=== PATIENT | female | born 1930 | race Caucasian/White ===

== ENCOUNTER 2017-11-26 14:22 | Inpatient (IN) | payer MEDICARE, MEDICAID ==
[2017-11-26 14:57] VITALS: BMI 42.5
--- NOTE | 2017-11-26 15:19 | C.PDOC ---
History Of Present Illness 87 y/o F c PMHx HTN, HLD, DM, Alzheimer's BIBEMS with shortness of breath since this morning. Patient was visited by daughter at home, was found to be dyspneic and complaining of palpitations and general weakness. En route, patient was given 2 nitro sprays and Aspirin 325. The patient denies any fever, chest pain, nausea, vomiting, diarrhea. Daughter notes bilateral lower legs with edema over past few weeks. Time Seen by Provider: 11/26/17 14:52 Chief Complaint (Nursing): Shortness Of Breath Past Medical History Vital Signs: Last Vital Signs Temp 98.5 F 11/26/17 14:30 Pulse 73 11/26/17 17:30 Resp 29 H 11/26/17 17:30 BP 168/89 H 11/26/17 17:30 Pulse Ox 93 L 11/26/17 17:30 - Medical History PMH: Alzheimer's Disease, Diabetes, HTN Denies: Depression Surgical History: Denies: Pacemaker - [facility] COLONOSCOPY (09/17/12) DX ULTRASOUND-DIGESTIVE (04/06/07) ESOPHAGOGASTRODUODENOSCOPY [EGD] W/CLOSED BIOPSY (04/06/07) Family History: States: No Known Family Hx - Social History Hx Tobacco Use: No Hx Alcohol Use: No Hx Substance Use: No Review Of Systems Except As Marked, All Systems Reviewed And Found Negative. Constitutional: Negative for: Fever Cardiovascular: Negative for: Chest Pain Physical Exam - Physical Exam Additional Physical Exam Comments: Gen: Elderly female, NAD Head: NC Eyes: No scleral icterus ENT: Dry MM Neck: Supple Chest: No tenderness CV: Regular rate, no S3 Lungs: Bibasilar crackles. Hypoxic to 86% on room air. Abd: Soft, NT Back: No CVA tenderness Skin: No rash Extremities: Bilateral pitting edema of lower legs Neuro: Alert ED Course And Treatment - Laboratory Results Result Diagrams: 11/26/17 15:15 11/26/17 15:15 O2 Sat by Pulse Oximetry: 88 Medical Decision Making Medical Decision Making: EKG Sinus rhythm, 83 bpm, nonspecific ST/T wave changes in precordial leads, no ST elevations. CTA reveals R pulmonary artery embolism. Blood pressure stable, pulse oximetry normal on nasal cannula, no tachycardia. Discussed with intesivist who recommends heparin drip and stable for floor. Dr. Vincent accepts to his service, recommends Dr. Wood and Dr. Lucero for consultation. Disposition Discussed With : Dragan Vincent - Disposition Disposition: HOSPITALIZED Disposition Time: 18:21 Condition: GUARDED Forms: [facility] (Serbian) - Clinical Impression Clinical Impression: Pulmonary embolism
[2017-11-26 15:23] LABS: BASO % 0.5 % (0.0-2.0); EOS # 0.2 K/uL (0.0-0.7); EOS % 2.9 % (0.0-4.0); HEMOGLOBIN 12.7 g/dL (11.0-16.0); LYMPH % 32.6 % (20.0-40.0); MEAN CORPUSCULAR HEMOGLOBIN 29.7 pg (27.0-31.0); MEAN CORPUSCULAR HGB CONC 33.3 g/dL (33.0-37.0); MEAN PLATELET VOLUME 8.5 fL (7.2-11.7); MONO # 0.4 K/uL (0.0-0.8); MONO % 6.1 % (0.0-10.0); NEUT # 3.5 K/uL (1.8-7.0); NEUT % 57.9 % (50.0-75.0); NRBC % 0.1 % (0.0-2.0); RBC 4.27 Mil/uL (3.80-5.20); RED CELL DISTRIBUTION WIDTH 15.6 % (11.5-14.5)
[2017-11-26 15:24] LABS: MEAN CELL VOLUME 89.1 fL (81.0-99.0)
[2017-11-26 15:29] LABS: PROTHROMBIN TIME 10.6 SECONDS (9.7-12.2)
[2017-11-26 15:32] LABS: ALB/GLOB RATIO 1.1 (1.0-2.1); ALBUMIN 4.2 g/dL (3.5-5.0); ALT/SGPT 24 U/L (9-52); AST/SGOT 28 U/L (14-36); BLOOD UREA NITROGEN 15 mg/dL (7-17); CALCIUM 9.4 mg/dl (8.6-10.4); GFR AFRICAN-AMERICAN > 60; GFR NON-AFRICAN AMERICAN 53
[2017-11-26 15:44] LABS: B-TYPE NATRIURETIC PEPTIDE 547 pg/mL (0-900); CK-MB 1.29 ng/mL (0.0-3.38)
--- NOTE | 2017-11-26 15:48 | RAD ---
HISTORY: dyspnea COMPARISON: 05/14/2015 FINDINGS: LUNGS: No active pulmonary disease. PLEURA: No significant pleural effusion identified, no pneumothorax apparent. CARDIOVASCULAR: Normal. OSSEOUS STRUCTURES: No significant abnormalities. VISUALIZED UPPER ABDOMEN: Normal. OTHER FINDINGS: None. IMPRESSION: No active disease.
[2017-11-26 16:24] LABS: SQUAMOUS EPITHIAL 2 /hpf (0-5); URINE BILIRUBIN NEGATIVE (NEGATIVE); URINE BLOOD 1+ (NEGATIVE); URINE CLARITY Clear (Clear); URINE COLOR Yellow (YELLOW); URINE GLUCOSE (UA) 1+ mg/dL (Normal); URINE LEUKOCYTE ESTERASE NEG Leu/uL (Negative); URINE NITRATE NEGATIVE (NEGATIVE); URINE PROTEIN 1+ mg/dL (NEGATIVE); URINE UROBILINOGEN NORMAL mg/dL (0.2-1.0)
[2017-11-26] MEDS ORDERED: Iodixanol 320 MG/ML 100 ML BOTTLE IV ONE (17:47)
[2017-11-26] MEDS ORDERED: Enoxaparin 80 mg Syringe SC STA (18:09)
--- NOTE | 2017-11-26 18:28 | CT ---
CTA chest PE protocol Indication: Hypoxia Technique: Contiguous axial images were obtained through the chest with intravenous contrast enhancement. Sagittal and coronal reconstructions were generated and reviewed. This CT exam was performed using 1 or more of the following dose reduction techniques: Automated exposure control, adjustment of the MAA and/or kV according to patient size, and/or use of iterative reconstruction technique. IV Contrast: 100 mL Visipaque 320 Radiation dose (DLP): 447.97 MGy-cm. Comparison: Chest x-ray performed 11/26/17 Findings: Visualized portions of the inferior thyroid gland appear unremarkable. The mediastinal and hilar vascular structures appear within normal limits. Heart size appears within normal limits. Atherosclerotic calcifications of the aorta. Large right main pulmonary artery embolus with extension into upper and lower lobe branches. Thrombus is also noted within the left upper greater than lower lobe pulmonary artery branches. Small linear opacity within the central pulmonary artery favored to reflect artifact rather than tiny saddle embolus. No focal consolidation. No pleural effusion. No pneumothorax. No suspicious pulmonary nodules measuring greater than 5 mm. Limited visualized portions of the upper abdomen ; fatty atrophy of the pancreas. Degenerative changes of the spine. Impression: Large right main pulmonary artery embolus with extension into upper and lower lobe branches. Thrombus is also noted within the left upper greater than lower lobe pulmonary artery branches. Small linear opacity within the central pulmonary artery favored to reflect artifact rather than tiny saddle embolus. Findings discussed with Dr. Pedroza on 11/26/17 at 6:19 p.m.
--- NOTE | 2017-11-26 19:18 | CP.PCM.CON ---
History of Present Illness - History of Present Illness History of Present Illness: reason for consultation: shortness of breath/pulmonary embolism 87-year-old female with hypertension, diabetes brought in by family for shortness of breath and swelling off lowextremities. Daughter states for the past few weeks patient developed bilateral lower extremities edema and today found her in respiratory distress with palpitation and generalized weakness. CT angio Showed large pulmonary embolism in the right pulmonary artery. Patient hemodynamically stable. Awake and responsive in no respiratory distress Past Patient History - Infectious Disease Hx of Infectious Diseases: None - Past Social History Smoking Status: Never Smoked - CARDIAC Hx Hypertension: Yes Hx Pacemaker: No - NEUROLOGICAL Hx Alzheimer's Disease: Yes - ENDOCRINE/METABOLIC Hx Diabetes Mellitus Type 1: Yes - HEMATOLOGICAL/ONCOLOGICAL Hx Blood Transfusions: No - PSYCHIATRIC Hx Depression: No Hx Substance Use: No - SURGICAL HISTORY Hx Surgeries: Yes (BLATERAL CATARCTS) - ANESTHESIA Hx Anesthesia Reactions: No Hx Malignant Hyperthermia: No Meds Allergies/Adverse Reactions: Allergies Allergy/AdvReac Type Severity Reaction Status Date / Time Penicillins Allergy RASH Verified 11/26/17 14:56 - Medications Medications: Current Medications Heparin Sodium/Sodium Chloride (Heparin 85068 Units/250ml 1/2 Normal Saline) 25 ,000 units in 250 mls @ 19.595 mls/hr IV .[id number] PRN; Protocol; 18 UNITS/KG/HR PRN Reason: ADJUST RATE PER PROTOCOL Results - Vital Signs Recent Vital Signs: Last Vital Signs Temp 98.5 F 11/26/17 14:30 Pulse 73 11/26/17 17:30 Resp 29 H 11/26/17 17:30 BP 168/89 H 11/26/17 17:30 Pulse Ox 88 L 11/26/17 18:22 - Labs Result Diagrams: 11/26/17 15:15 11/26/17 15:15 Labs: Laboratory Results - last 24 hr 11/26/17 11/26/17 11/26/17 15:07 15:15 15:15 WBC 6.0 RBC 4.27 Hgb 12.7 Hct 38.0 MCV 89.1 D MCH 29.7 MCHC 33.3 RDW 15.6 H Plt Count 215 MPV 8.5 Neut % (Auto) 57.9 Lymph % (Auto) 32.6 [place] % (Auto) 6.1 Eos % (Auto) 2.9 Baso % (Auto) 0.5 Neut # (Auto) 3.5 Lymph # (Auto) 2.0 [place] # (Auto) 0.4 Eos # (Auto) 0.2 Baso # (Auto) 0.0 PT INR APTT Sodium 139 Potassium 3.7 Chloride 98 Carbon Dioxide 29 Anion Gap 16 BUN 15 Creatinine 1.0 Est GFR ( Amer) > 60 Est GFR (Non-Af Amer) 53 POC Glucose (mg/dL) 227 H Random Glucose 245 H Calcium 9.4 Total Bilirubin 0.6 AST 28 ALT 24 Alkaline Phosphatase 86 Total Creatine Kinase 50 CK-MB (Mass) 1.29 Troponin I 0.0620 NT-Pro-B Natriuret Pep 547 Total Protein 8.0 Albumin 4.2 Globulin 3.8 Albumin/Globulin Ratio 1.1 Urine Color Urine Clarity Urine pH Ur Specific [place] Urine Protein Urine Glucose (UA) Urine Ketones Urine Blood Urine Nitrate Urine Bilirubin Urine Urobilinogen Ur Leukocyte Esterase Urine WBC (Auto) Urine RBC (Auto) Ur Squamous Epith Cells 11/26/17 11/26/17 15:15 16:04 WBC RBC Hgb Hct MCV MCH MCHC RDW Plt Count MPV Neut % (Auto) Lymph % (Auto) [place] % (Auto) Eos % (Auto) Baso % (Auto) Neut # (Auto) Lymph # (Auto) [place] # (Auto) Eos # (Auto) Baso # (Auto) PT 10.6 INR 1.0 APTT 30 Sodium Potassium Chloride Carbon Dioxide Anion Gap BUN Creatinine Est GFR ( Amer) Est GFR (Non-Af Amer) POC Glucose (mg/dL) Random Glucose Calcium Total Bilirubin AST ALT Alkaline Phosphatase Total Creatine Kinase CK-MB (Mass) Troponin I NT-Pro-B Natriuret Pep Total Protein Albumin Globulin Albumin/Globulin Ratio Urine Color Yellow Urine Clarity Clear Urine pH 5.0 Ur Specific [place] 1.014 Urine Protein 1+ H Urine Glucose (UA) 1+ Urine Ketones Negative Urine Blood 1+ H Urine Nitrate Negative Urine Bilirubin Negative Urine Urobilinogen Normal Ur Leukocyte Esterase Neg Urine WBC (Auto) < 1 Urine RBC (Auto) 3 Ur Squamous Epith Cells 2 Assessment & Plan (1) Pulmonary embolism Status: Acute Comment: patient hemodynamically stable. Start IV heparin. Echocardiogram. Venous Doppler of lower extremities
[2017-11-26] MEDS: Heparin25000 units/250ml 1/2NS 25,000 UNITS/250 ML BAG IV PRN (20:35)
[2017-11-26] MEDS ORDERED: ACETAMINOPHEN PO PRN (23:59)
[2017-11-26] MEDS ORDERED: NAPROXEN 375 MG PO PRN (23:59)
[2017-11-26] MEDS ORDERED: OXYCODONE HYDR PO PRN (23:59)
--- NOTE | 2017-11-27 05:42 | CON ---
DATE: CARDIOLOGY CONSULT REASON FOR CONSULTATION: Pulmonary embolism. HISTORY OF PRESENT ILLNESS: The patient is an 87 years old [place] Citizen female who has a history of hypertension, diabetes mellitus, hypothyroidism, hyperlipidemia, history of TIA, and history of Alzheimer dementia who was brought in by the EMS as her daughter noticed that the patient was short of breath with bilateral leg swelling. The patient in the ER was diagnosed with bilateral pulmonary embolism. The patient did report chest pain while she was at home, and she denies any chest pain at this time. SOCIAL HISTORY: Nonsmoker. She lives by herself with full daily care of her daughter and grandchildren. The patient is able to ambulate, but at times, she can get incontinent. She is confused but she still managed to stay by herself at home overnight. MEDICATIONS: The patient is currently on intravenous heparin in a therapeutic regimen for pulmonary embolism. Home medications include atorvastatin 10 mg daily, Pepcid 20 mg twice a day, Synthroid 100 mcg once a day, metformin 500 mg daily, lisinopril 10 mg once a day, naproxen 375 mg twice a day, tramadol 50 mg twice a day. REVIEW OF SYSTEMS: No reported syncope or fall. No reported fever or chills. No reported hemoptysis, and no reported hypotension while the patient is in the emergency room or ventricular tachycardia. PHYSICAL EXAMINATION: GENERAL: The patient is an elderly female, who does not appear to be in acute distress. VITAL SIGNS: Blood pressure 168/89, heart rate 73, respirations 29, temperature 98.5. HEENT: Normocephalic. NECK: No JVD. CHEST: Bilateral rhonchi. HEART: S1, S2 regular. ABDOMEN: Soft. EXTREMITIES: 1+ pitting edema with bilateral leg tenderness. LABORATORY DATA: SMA-7: Sodium 139, potassium 3.7, chloride 98, CO2 of 29, glucose 145, BUN 15, creatinine 1.0. One set of troponin is negative. PT, INR, and PTT are within normal limits. CBC: WBC 6, hemoglobin 12.7, hematocrit 38, platelet count 215,000. Chest CT angio was consistent with large right main pulmonary artery embolus with extension into the upper and lower low branches. Thrombus is also noted but in the left upper greater than low pulmonary arterial branches. A small linear opacity within the central pulmonary artery favors artifact rather than a saddle embolus. ASSESSMENT: 1. Acute bilateral pulmonary embolism. 2. Hypertension and diabetes mellitus. 3. Hyperlipidemia. 4. Hypothyroidism. 5. Alzheimer dementia. RECOMMENDATIONS: Continue current intravenous heparin in therapeutic regimen for pulmonary embolism. Admit the patient to the ICU. Obtain a bedside echocardiogram. Studio Technician Video Operator and pulmonary consult has been requested by Dr. Lucero, who will evaluate the patient tonight. At this time, thrombolysis is not indicated as the patient is not hypotensive. The patient's FiO2 is in the 90s at O2 via nasal cannula. We will obtain a bedside venous Doppler of the lower extremity. Joe Wood MD
[2017-11-27] MEDS ORDERED: HYDROmorphone 0.5 mg/0.5 ml ISec ONE (09:02)
[2017-11-27] MEDS ORDERED: VESICARE 5 MG PO SCH (10:00)
[2017-11-27] MEDS ORDERED: METFORMIN HYDROCHLORIDE 500 MG PO SCH (10:00)
[2017-11-27] MEDS ORDERED: LISINOPRIL 10 MG PO SCH (10:00)
[2017-11-27] MEDS ORDERED: Home Med 1 UNIT (Atorvastatin Calcium [Atorvastatin Calcium] 10 MG) PO SCH (10:00)
[2017-11-27] MEDS ORDERED: LEVOTHYROXINE SODIUM 100 MCG PO SCH (10:00)
[2017-11-27] MEDS ORDERED: FAMOTIDINE 20 MG PO SCH (10:00)
[2017-11-27] MEDS ORDERED: (Novolog) Insulin Aspart, Recombinant 100 u/ml 10 ml vial SC SCH (10:00)
[2017-11-27] MEDS ORDERED: Levothyroxine 100 MCG TAB PO SCH (10:30)
--- NOTE | 2017-11-27 10:40 | CP.PCM.PN ---
Subjective - Date & Time of Evaluation Date of Evaluation: 11/27/17 Time of Evaluation: 10:00 - Subjective Subjective: the patient seen and examined On heparin drip No shortness of breath at rest Echocardiogram showed pulmonary hypertension and dilated right atrium DVT right femoral and popliteal Consider IVC filter Consider IR consult for EKOS/ Objective - Vital Signs/Intake and Output Vital Signs (last 24 hours): Temp Pulse Resp BP Pulse Ox 98 F 65 20 115/64 87 L 11/27/17 08:30 11/27/17 08:30 11/27/17 08:30 11/27/17 08:30 11/27/17 08:30 Intake and Output: 11/27/17 11/27/17 06:59 18:59 Intake Total 50 Balance 50 - Medications Medications: Current Medications Famotidine (Pepcid) 20 mg PO BID [facility] Home Med (Vesicare) 5 mg PO DAILY [facility] Heparin Sodium/Sodium Chloride (Heparin 34119 Units/250ml 1/2 Normal Saline) 25 ,000 units in 250 mls @ 19.595 mls/hr IV .[id number] PRN; Protocol; 18 UNITS/KG/HR PRN Reason: ADJUST RATE PER PROTOCOL Last Titration: 11/27/17 07:50 Dose: 0 units/kg/hr, 0 mls/hr Insulin Aspart (Novolog) 0 unit SC QID [facility] PRN Reason: Protocol Levothyroxine Sodium (Synthroid) 100 mcg PO QD7 [facility] Lisinopril (Zestril) 10 mg PO DAILY [facility] Metformin HCl (Glucophage) 500 mg PO DAILY [facility] Naproxen (Anaprox) 275 mg PO BID PRN PRN Reason: Pain, 1-3 Oxycodone/Acetaminophen (Percocet 5/325 Mg Tab) 1 tab PO Q4 PRN PRN Reason: Pain Rivastigmine (Exelon 4.6 Mg/24 Hr Patch) 1 patch TD DAILY [facility] Rosuvastatin Calcium (Crestor) 5 mg PO HS [facility] - Labs Labs: 11/26/17 15:15 11/26/17 15:15 PT 10.6 SECONDS (9.7-12.2) 11/26/17 15:15 INR 1.0 11/26/17 15:15 APTT > 400 SECONDS (21-34) H* D 11/27/17 06:40 Assessment and Plan (1) Pulmonary embolism Assessment & Plan: continue anticoagulation Cardiology followup Consider IR for EKOS Status: Acute
[2017-11-27] MEDS: Heparin25000 units/250ml 1/2NS 25,000 UNITS/250 ML BAG IV PRN (10:52)
[2017-11-27] MEDS ORDERED: DiphenhydrAMINE 50 mg/ml Inj ONE (11:37)
[2017-11-27] MEDS ORDERED: Midazolam 2 MG/2 ML VIAL ONE ×2 (11:37)
[2017-11-27] MEDS ORDERED: Iodixanol 320 MG/ML 100 ML BOTTLE IV ONE (12:24)
[2017-11-27] MEDS ORDERED: Lidocaine 2% Inj (20ml) ONE (12:27)
--- NOTE | 2017-11-27 12:57 | CP.PCM.CON ---
History of Present Illness - History of Present Illness History of Present Illness: Vascular Surgery- Dr. Pierson 87F pmhx DM, HTN, presents to [facility] ed w/ bilateral lower extremity swelling, pain and erythema for 4 weeks. Pt has been short of breath for 1 week, however 1 day history of severe shortness of breath and chest pain. Pt admits to having recent URI w/ runny nose, and non-productive cough Denies: Fevers, nausea, vomiting, diarrhea PMH: stated above PSH: denies ALL: PCN SocialHx: lives at home by her self, ambulates w/ walker, denies ETOH, tobacco, recreational drug use Review of Systems - Review of Systems All systems: reviewed and no additional remarkable complaints except - Constitutional Constitutional: As Per HPI Past Patient History - Infectious Disease Hx of Infectious Diseases: None - Past Social History Smoking Status: Never Smoked - CARDIAC Hx Hypertension: Yes Hx Pacemaker: No - NEUROLOGICAL Hx Alzheimer's Disease: Yes - ENDOCRINE/METABOLIC Hx Diabetes Mellitus Type 1: Yes - HEMATOLOGICAL/ONCOLOGICAL Hx Blood Transfusions: No - PSYCHIATRIC Hx Depression: No Hx Substance Use: No - SURGICAL HISTORY Hx Surgeries: Yes (BLATERAL CATARCTS) - ANESTHESIA Hx Anesthesia Reactions: No Hx Malignant Hyperthermia: No Meds Allergies/Adverse Reactions: Allergies Allergy/AdvReac Type Severity Reaction Status Date / Time Penicillins Allergy RASH Verified 11/26/17 14:56 - Medications Medications: Current Medications Famotidine (Pepcid) 20 mg PO BID [facility] Home Med (Vesicare) 5 mg PO DAILY [facility] Heparin Sodium/Sodium Chloride (Heparin 14391 Units/250ml 1/2 Normal Saline) 25 ,000 units in 250 mls @ 19.595 mls/hr IV .[id number] PRN; Protocol; 18 UNITS/KG/HR PRN Reason: ADJUST RATE PER PROTOCOL Last Admin: 11/27/17 10:52 Dose: 15 units/kg/hr, 16.329 mls/hr Insulin Aspart (Novolog) 0 unit SC QID [facility] PRN Reason: Protocol Last Admin: 11/27/17 11:45 Dose: Not Given Levothyroxine Sodium (Synthroid) 100 mcg PO QD7 [facility] Lisinopril (Zestril) 10 mg PO DAILY [facility] Last Admin: 11/27/17 11:42 Dose: Not Given Metformin HCl (Glucophage) 500 mg PO DAILY [facility] Last Admin: 11/27/17 11:46 Dose: Not Given Naproxen (Anaprox) 275 mg PO BID PRN PRN Reason: Pain, 1-3 Oxycodone/Acetaminophen (Percocet 5/325 Mg Tab) 1 tab PO Q4 PRN PRN Reason: Pain Rivastigmine (Exelon 4.6 Mg/24 Hr Patch) 1 patch TD DAILY [facility] Rosuvastatin Calcium (Crestor) 5 mg PO HS [facility] Physical Exam - Constitutional Appears: Non-toxic, No Acute Distress - Eye Exam Eye Exam: Scleral icterus. absent: EOMI - Respiratory Exam Respiratory Exam: NORMAL BREATHING PATTERN. absent: Accessory Muscle Use, Respiratory Distress - Cardiovascular Exam Cardiovascular Exam: +S1, +S2. absent: Bradycardia, Tachycardia - GI/Abdominal Exam GI & Abdominal Exam: Soft. absent: Distended, Firm, Guarding, Rigid, Tenderness - Extremities Exam Additional comments: bilateral lower extremity swelling and erythema +2 DP pulses bilateral - Neurological Exam Neurological exam: Alert, Oriented x3 - Skin Skin Exam: Intact, Normal Color Results - Vital Signs Recent Vital Signs: Last Vital Signs Temp 97.4 F L 11/27/17 11:13 Pulse 81 11/27/17 11:00 Resp 22 11/27/17 11:00 BP 162/81 H 11/27/17 11:00 Pulse Ox 87 L 11/27/17 08:30 - Labs Result Diagrams: 11/26/17 15:15 11/26/17 15:15 Labs: Laboratory Results - last 24 hr 11/26/17 11/26/17 11/26/17 15:07 15:15 15:15 WBC 6.0 RBC 4.27 Hgb 12.7 Hct 38.0 MCV 89.1 D MCH 29.7 MCHC 33.3 RDW 15.6 H Plt Count 215 MPV 8.5 Neut % (Auto) 57.9 Lymph % (Auto) 32.6 [place] % (Auto) 6.1 Eos % (Auto) 2.9 Baso % (Auto) 0.5 Neut # (Auto) 3.5 Lymph # (Auto) 2.0 [place] # (Auto) 0.4 Eos # (Auto) 0.2 Baso # (Auto) 0.0 PT INR APTT Sodium 139 Potassium 3.7 Chloride 98 Carbon Dioxide 29 Anion Gap 16 BUN 15 Creatinine 1.0 Est GFR ( Amer) > 60 Est GFR (Non-Af Amer) 53 POC Glucose (mg/dL) 227 H Random Glucose 245 H Calcium 9.4 Total Bilirubin 0.6 AST 28 ALT 24 Alkaline Phosphatase 86 Total Creatine Kinase 50 CK-MB (Mass) 1.29 Troponin I 0.0620 NT-Pro-B Natriuret Pep 547 Total Protein 8.0 Albumin 4.2 Globulin 3.8 Albumin/Globulin Ratio 1.1 Urine Color Urine Clarity Urine pH Ur Specific [place] Urine Protein Urine Glucose (UA) Urine Ketones Urine Blood Urine Nitrate Urine Bilirubin Urine Urobilinogen Ur Leukocyte Esterase Urine WBC (Auto) Urine RBC (Auto) Ur Squamous Epith Cells 11/26/17 11/26/17 11/27/17 15:15 16:04 06:40 WBC RBC Hgb Hct MCV MCH MCHC RDW Plt Count MPV Neut % (Auto) Lymph % (Auto) [place] % (Auto) Eos % (Auto) Baso % (Auto) Neut # (Auto) Lymph # (Auto) [place] # (Auto) Eos # (Auto) Baso # (Auto) PT 10.6 INR 1.0 APTT 30 > 400 H* D Sodium Potassium Chloride Carbon Dioxide Anion Gap BUN Creatinine Est GFR ( Amer) Est GFR (Non-Af Amer) POC Glucose (mg/dL) Random Glucose Calcium Total Bilirubin AST ALT Alkaline Phosphatase Total Creatine Kinase CK-MB (Mass) Troponin I NT-Pro-B Natriuret Pep Total Protein Albumin Globulin Albumin/Globulin Ratio Urine Color Yellow Urine Clarity Clear Urine pH 5.0 Ur Specific [place] 1.014 Urine Protein 1+ H Urine Glucose (UA) 1+ Urine Ketones Negative Urine Blood 1+ H Urine Nitrate Negative Urine Bilirubin Negative Urine Urobilinogen Normal Ur Leukocyte Esterase Neg Urine WBC (Auto) < 1 Urine RBC (Auto) 3 Ur Squamous Epith Cells 2 11/27/17 11/27/17 07:51 11:52 WBC RBC Hgb Hct MCV MCH MCHC RDW Plt Count MPV Neut % (Auto) Lymph % (Auto) [place] % (Auto) Eos % (Auto) Baso % (Auto) Neut # (Auto) Lymph # (Auto) [place] # (Auto) Eos # (Auto) Baso # (Auto) PT INR APTT Sodium Potassium Chloride Carbon Dioxide Anion Gap BUN Creatinine Est GFR ( Amer) Est GFR (Non-Af Amer) POC Glucose (mg/dL) 189 H 172 H Random Glucose Calcium Total Bilirubin AST ALT Alkaline Phosphatase Total Creatine Kinase CK-MB (Mass) Troponin I NT-Pro-B Natriuret Pep Total Protein Albumin Globulin Albumin/Globulin Ratio Urine Color Urine Clarity Urine pH Ur Specific [place] Urine Protein Urine Glucose (UA) Urine Ketones Urine Blood Urine Nitrate Urine Bilirubin Urine Urobilinogen Ur Leukocyte Esterase Urine WBC (Auto) Urine RBC (Auto) Ur Squamous Epith Cells Assessment & Plan - Assessment and Plan (Free Text) Assessment: 87F w/ pulmonary embolism and acute DVT Plan: NPO hold heparin IVC filter placement today pain control PRN d/w. Dr. [facility] PGY1
--- NOTE | 2017-11-27 13:04 | VASCLAB ---
PROCEDURE: Lower Extremity Venous Duplex Exam. HISTORY: Leg swelling PRIORS: None. TECHNIQUE: Bilateral common femoral, femoral, popliteal and posterior tibial, peroneal and great saphenous veins were evaluated. Flow was assessed with color Doppler, compressibility, assessment of phasic flow and augmentation response. Report prepared by TABITHA Lizarraga, RVT FINDINGS: RIGHT: 1. Common Femoral Vein: 1.1. Compressibility - Fully compressible: Thrombus - None : Flow - Phasic: Augmentation -Normal: Reflux - None. 2. Femoral Vein: 2.1. Compressibility - Fully compressible: Thrombus - None : Flow - Phasic: Augmentation -Normal: Reflux - None. 3. Popliteal Vein: 3.1. Compressibility - Fully compressible: Thrombus - None : Flow - Phasic: Augmentation -Normal: Reflux - None. 4. Posterior Tibial Vein: 4.1. Compressibility - Fully compressible: Thrombus - None: Flow - Phasic: Augmentation -Normal: Reflux - None. 5. Peroneal Vein: 5.1. Compressibility - : Thrombus - : Flow - : Augmentation -: Reflux - . 6. Great Saphenous Vein: 6.1. Compressibility - Fully compressible: Thrombus - None: Flow - Phasic: Augmentation - Normal: Reflux - None. LEFT: 1. Common Femoral Vein: 1.1. Compressibility - Fully compressible: Thrombus - None: Flow - Phasic: Augmentation -Normal: Reflux - None. 2. Femoral Vein: 2.1. Compressibility - Fully compressible: Thrombus - None: Flow - Phasic: Augmentation -Normal: Reflux - None. 3. Popliteal Vein: 3.1. Compressibility - Fully compressible: Thrombus - None : Flow - Phasic: Augmentation -Normal: Reflux - Severe. 4. Posterior Tibial Vein: 4.1. Compressibility - Fully compressible: Thrombus - None: Flow - Phasic: Augmentation -Normal: Reflux - None. 5. Peroneal Vein: 5.1. Compressibility - : Thrombus - : Flow - : Augmentation -: Reflux - . 6. Great Saphenous Vein: 6.1. Compressibility - Fully compressible: Thrombus - None: Flow - Phasic: Augmentation - Normal: Reflux - None. OTHER FINDINGS: DREW Posadas notified about the findings. IMPRESSION: Right: Acute thrombosis of the right femoral and popliteal veins with severe reduction of the venous return. Due to swelling in the calf, the right peroneal vein was not visualized. Left: No evidence of deep or superficial vein thrombosis of the left lower extremity. Normal valve function noted of the left side. Due to swelling in the calf, the left peroneal vein was not visualized.
--- NOTE | 2017-11-27 13:39 | CARD ---
APPROVED REPORT EKG Measurement Heart [id number] <Conclusion> Sinus rhythm with 1st degree AV block Left axis deviation ST & T wave abnormality, consider anterior ischemia Abnormal ECG
[2017-11-27] MEDS ORDERED: Sodium Chloride 0.9% 250 ML IV ONE (14:08)
--- NOTE | 2017-11-27 14:17 | PCM.SURG1 ---
Surgeon's Initial Post Op Note - Surgeon's Notes Surgeon: Dr. Pierson Shot Core Drill Operator: PGY1 Pre-Operative Diagnosis: 1. Pulmonary Embolism. 2. RLE Deep vein thrombosis Operative Findings: see op note Post-Operative Diagnosis: as above Operation Performed: IVC filter placement; access left fomral vein Specimen/Specimens Removed: none Estimated Blood Loss: EBL {In ML}: 10 Date of Surgery/Procedure: 11/27/17 Time of Surgery/Procedure: 14:16
[2017-11-27] MEDS ORDERED: Heparin25000 units/250ml 1/2NS 25,000 UNITS/250 ML BAG IV PRN ×2 (14:32→23:30)
--- NOTE | 2017-11-27 17:56 | CARD ---
APPROVED REPORT EXAM: Two-dimensional and M-mode echocardiogram with Doppler and color Doppler. Other Information Quality : GoodRhythm : INDICATION Pulmonary Embolism RISK FACTORS Hypertension Hyperlipidemia Diabetes 2D DIMENSIONS IVSd1.4 (0.7-1.1cm)LVDd3.3 (3.9-5.9cm) PWd1.3 (0.7-1.1cm)LVDs1.4 (2.5-4.0cm) FS (%) 59.0 %LVEF (%)89.5 (>50%) M-Mode DIMENSIONS RVDd2.71 (2.1-3.2cm)Left Atrium (MM)3.62 (2.5-4.0cm) IVSd1.52 (0.7-1.1cm)Aortic Root3.24 (2.2-3.7cm) LVDd3.72 (4.0-5.6cm)Aortic Cusp Exc.1.64 (1.5-2.0cm) PWd1.34 (0.7-1.1cm)FS (%) 52 % LVDs1.80 (2.0-3.8cm)LVEF (%)84 (>50%) Mitral Valve MV E Wvkendpy94.4cm/sMV A Komyktip91.6cm/sE/A ratio0.7 TDI E/Lateral E'0.0E/Medial E'0.0 Tricuspid Valve TR Peak Teldnfyt853pr/sTR Peak Gr.[id number] LEFT VENTRICLE The left ventricle is normal size. There is mild concentric left ventricular hypertrophy. The Ejection Fraction is 65-70%. Transmitral Doppler flow pattern is Grade I-abnormal relaxation pattern. RIGHT VENTRICLE The right ventricle is normal size. The right ventricular systolic function is normal. ATRIA The left atrium size is normal. The right atrium size is normal. The interatrial septum is intact with no evidence for an atrial septal defect. AORTIC VALVE The aortic valve is trileaflet. The aortic valve is mildly sclerotic. No aortic regurgitation is present. MITRAL VALVE The mitral valve is normal in structure. Mitral regurgitation is trace. TRICUSPID VALVE The tricuspid valve is normal in structure. There is mild tricuspid regurgitation. Right ventricular systolic pressure is estimated at 72 mmHg. There is severe pulmonary hypertension. PULMONIC VALVE The pulmonary valve is normal in structure. GREAT VESSELS The aortic root is normal size. The aortic root displays mild sclerocalcific changes of the aortic root. The IVC is normal in size and collapses >50% with inspiration. PERICARDIAL EFFUSION There is no pericardial effusion. <Conclusion> The left ventricle is normal size. There is mild concentric left ventricular hypertrophy. The Ejection Fraction is 65-70%. Transmitral Doppler flow pattern is Grade I-abnormal relaxation pattern. The right ventricular systolic function is normal. There is mild tricuspid regurgitation. Right ventricular systolic pressure is estimated at 72 mmHg. There is severe pulmonary hypertension. The aortic root is normal size. The aortic root displays mild sclerocalcific changes of the aortic root.
--- NOTE | 2017-11-27 21:47 | PN ---
DATE: 11/27/2017. SUBJECTIVE: The patient just underwent IVC filter placement. No reported ventricular arrhythmia. She is hemodynamically stable. PHYSICAL EXAMINATION: VITAL SIGNS: Blood pressure 162/73, heart rate is 66, respirations 13 and temperature 97.8. HEENT: Normocephalic. CHEST: Clear. HEART: S1 and S2 regular. EXTREMITIES: 1+ pitting edema. LABORATORY STUDIES: Blood sugar is 189 and 172, most recent PTT was more than 400 at 06:40 a.m. The patient has been off heparin until now. I did review echocardiogram study, which revealed normal left ventricular systolic function, mild dilated right ventricle with mildly depressed right ventricular systolic function. Venous Doppler of the lower extremity revealed acute thrombosis of the right femoral and popliteal veins with severe reduction in the venous flow. ASSESSMENT: 1. Deep venous thrombosis of the right femoropopliteal vein. 2. Bilateral pulmonary embolism. 3. Mild dilated right ventricle with moderately reduced systolic function of the right ventricle and severe pulmonary hypertension. RECOMMENDATIONS: Case was discussed with Dr. Red and given the patient's age and current hemodynamic stability, thrombolysis may not be justified. The patient will be admitted to telemetry and will be resumed on intravenous heparin therapy and in the meantime, continue current Zestril, Synthroid and Pepcid. The case was discussed with the patient's family at the bedside. Joe Wood MD
[2017-11-27] MEDS: (Novolog) Insulin Aspart, Recombinant 100 u/ml 10 ml vial SC SCH (21:51)
--- NOTE | 2017-11-28 00:44 | OP ---
PROCEDURE DATE: 11/27/2017 PREOPERATIVE DIAGNOSIS: Pulmonary embolism, right femoral-popliteal deep venous thrombosis. POSTOPERATIVE DIAGNOSIS: Pulmonary embolism, right femoral-popliteal deep venous thrombosis. SURGEON: Avis Pierson M.D. ANESTHESIA: IV sedation. DESCRIPTION OF PROCEDURE: The patient was brought to the cardiac cath unit and placed supine on the OR table. After adequate IV sedation had been accomplished, the left groin was prepped and draped as a sterile field. Ultrasound of the left groin showed a patent compressible femoral vein and artery. After local infiltration with 1% Xylocaine, the left femoral vein was percutaneously accessed and a guidewire was passed into the IVC. The vena cavagram showed that the renal vein is at the level of the L1-L2 intervertebral space. After that, the dilator and the guidewire was removed, and the filter was pushed into the sheath and deployed with the tip of the filter at the renal vein level. At this point, we noticed that there is a second filter in place exactly at the same place. Both filters would open completely and completion venogram showed that the suture was in good position. The sheath was removed and left groin was compressed for 10 minutes. Dry sterile dressing was applied. Heparin was restarted. Avis Pierson MD
[2017-11-28] MEDS ORDERED: guaiFENesin DM 200 mg-20 mg/10 ml UD PO ONE (02:43)
[2017-11-28 05:58] LABS: BASO # 0.1 K/uL (0.0-0.2); BASO % 0.9 % (0.0-2.0); EOS # 0.3 K/uL (0.0-0.7); EOS % 3.2 % (0.0-4.0); HEMOGLOBIN 12.3 g/dL (11.0-16.0); LYMPH # 2.3 K/uL (1.0-4.3); LYMPH % 24.1 % (20.0-40.0); MEAN CELL VOLUME 89.5 fL (81.0-99.0); MEAN CORPUSCULAR HEMOGLOBIN 30.4 pg (27.0-31.0); MEAN CORPUSCULAR HGB CONC 33.9 g/dL (33.0-37.0); MEAN PLATELET VOLUME 8.8 fL (7.2-11.7); MONO # 0.9 K/uL (0.0-0.8); MONO % 8.9 % (0.0-10.0); NEUT # 6.1 K/uL (1.8-7.0); NEUT % 62.9 % (50.0-75.0); RBC 4.07 Mil/uL (3.80-5.20); RED CELL DISTRIBUTION WIDTH 15.4 % (11.5-14.5); WHITE BLOOD COUNT 9.7 K/uL (4.8-10.8)
[2017-11-28 06:10] LABS: ALB/GLOB RATIO 1.2 (1.0-2.1); ALBUMIN 3.8 g/dL (3.5-5.0); CALCIUM 9.1 mg/dl (8.6-10.4)
--- NOTE | 2017-11-28 07:17 | HP ---
HISTORY OF PRESENT ILLNESS: This is an 87-year-old [place] female with history of multiple medical problems including hypertension, uncontrolled type 2 diabetes mellitus, presented to emergency room with severe shortness of breath. The patient was found to be hypoxic, and she was evaluated by CT angiogram that showed left pulmonary embolism. The patient was started on heparin and admitted for further management after also home medications were resumed. Other review of systems is negative. ALLERGIES: POSITIVE FOR PENICILLIN. MEDICATIONS: As per MAR. SOCIAL HISTORY: No history of smoking, EtOH, or substance abuse. FAMILY HISTORY: Noncontributory. PAST MEDICAL HISTORY: As above. PHYSICAL EXAMINATION: GENERAL: The patient is in bed, comfortable, not in any cardiopulmonary distress at the time of this examination. VITAL SIGNS: Blood pressure 133/83, temperature 98.3, respiratory rate 20, and pulse 74. HEENT: Pupils equal and reactive to light. Normal-appearing mucosa of the conjunctivae, oropharynx, and nasal membrane mucosa. NECK: Supple. No JVD. No carotid bruit. No lymph node. No thyromegaly. CHEST AND LUNGS: Bilateral symmetrical expansion. Good air exchange. No rales, no rhonchi. CARDIOVASCULAR SYSTEM: PMI not localized. S1, S2. No additional sounds. ABDOMEN: Normoactive bowel sounds. No tenderness. No organomegaly. No masses. EXTREMITIES: No cyanosis, no clubbing, no edema. DOWNSTAIRS MAID: Alert, awake, and oriented x2. No neurological deficit could be appreciated. ASSESSMENT: 1. Pulmonary embolism. 2. Hypertension. 3. Uncontrolled type 2 diabetes mellitus. PLAN: Continue heparin. Follow recommendations of community support specialist, binding folder machine, and vascular surgeon. Resume the patient's home medications. Dragan Vincent MD
[2017-11-28] MEDS ORDERED: Heparin25000 units/250ml 1/2NS 25,000 UNITS/250 ML BAG IV PRN (07:52)
[2017-11-28] MEDS: (Novolog) Insulin Aspart, Recombinant 100 u/ml 10 ml vial SC SCH ×4 (08:10→22:30)
[2017-11-28] MEDS: Oxycodone/Acetaminophen 5/325 mg Tab PO PRN ×2 (08:42→12:45)
[2017-11-28] MEDS: Naproxen 275 mg Tab PO PRN (10:02)
[2017-11-28] MEDS: Tolterodine 4 mg ER Cap PO SCH (10:04)
--- NOTE | 2017-11-28 10:16 | CP.PCM.PN ---
Subjective - Date & Time of Evaluation Date of Evaluation: 11/28/17 Time of Evaluation: 07:15 - Subjective Subjective: Vascular Surgery- Dr. Pierson Patient seen and examined at bedside this AM. Pt was agitated overnight. Left groin site and dressing C/D/I no strike through. pain well controlled. Denies fevers, chills, chest pain, shortness of breath, nausea, vomiting, diarrhea Objective - Vital Signs/Intake and Output Vital Signs (last 24 hours): Temp Pulse Resp BP Pulse Ox 98.1 F 70 20 120/65 95 11/27/17 23:20 11/28/17 04:17 11/27/17 23:20 11/27/17 23:20 11/27/17 22:50 Intake and Output: 11/28/17 11/28/17 06:59 18:59 Intake Total 354 Balance 354 - Medications Medications: Current Medications Famotidine (Pepcid) 20 mg PO DAILY [facility] Last Admin: 11/28/17 10:11 Dose: 20 mg Heparin Sodium/Sodium Chloride (Heparin 44186 Units/250ml 1/2 Normal Saline) 25 ,000 units in 250 mls @ 10.777 mls/hr IV .[id number] PRN; Protocol; 12 UNITS/KG/HR PRN Reason: ADJUST RATE PER PROTOCOL Insulin Aspart (Novolog) 0 unit SC ACHS [facility] PRN Reason: Protocol Last Admin: 11/28/17 08:10 Dose: 6 unit Levothyroxine Sodium (Synthroid) 100 mcg PO QD7 [facility] Lisinopril (Zestril) 10 mg PO DAILY [facility] Last Admin: 11/28/17 10:11 Dose: 10 mg Metformin HCl (Glucophage) 500 mg PO DAILY [facility] Last Admin: 11/28/17 10:10 Dose: 500 mg Naproxen (Anaprox) 275 mg PO BID PRN PRN Reason: Pain, 1-3 Last Admin: 11/28/17 10:02 Dose: 275 mg Oxycodone/Acetaminophen (Percocet 5/325 Mg Tab) 1 tab PO Q4 PRN PRN Reason: Pain Last Admin: 11/28/17 08:42 Dose: 1 tab Rivastigmine (Exelon 4.6 Mg/24 Hr Patch) 1 patch TD DAILY [facility] Last Admin: 11/28/17 10:02 Dose: 1 patch Rosuvastatin Calcium (Crestor) 5 mg PO HS [facility] Last Admin: 11/27/17 21:53 Dose: 5 mg Tolterodine Tartrate (Detrol La) 4 mg PO DAILY [facility] Last Admin: 11/28/17 10:04 Dose: 4 mg - Labs Labs: 11/28/17 05:55 11/28/17 05:55 PT 10.6 SECONDS (9.7-12.2) 11/26/17 15:15 INR 1.0 11/26/17 15:15 APTT 144 SECONDS (21-34) H* D 11/28/17 05:55 - Constitutional Appears: Non-toxic, No Acute Distress (obese) - Head Exam Head Exam: ATRAUMATIC - Eye Exam Eye Exam: EOMI. absent: Scleral icterus - ENT Exam ENT Exam: Mucous Membranes Moist - Respiratory Exam Respiratory Exam: NORMAL BREATHING PATTERN. absent: Accessory Muscle Use, Respiratory Distress - Cardiovascular Exam Cardiovascular Exam: +S1, +S2. absent: Bradycardia, Tachycardia - GI/Abdominal Exam GI & Abdominal Exam: Soft. absent: Distended, Firm, Guarding, Rigid, Tenderness - Extremities Exam Additional comments: Left groin site, clean dry intact no signs of hematoma - Neurological Exam Neurological Exam: Alert, Awake, Oriented x3 - Skin Skin Exam: Dry, Intact, Warm Assessment and Plan - Assessment and Plan (Free Text) Assessment: 87F acute DVT and PE s/p IVC filter placement Plan: - monitor groin site - monitor pulses - c/w heparin and treatment for acute PE and DVT - discussed w/ Dr. Pierson surgical attending PGY1
--- NOTE | 2017-11-28 14:07 | CP.PCM.PN ---
Subjective - Date & Time of Evaluation Date of Evaluation: 11/28/17 Time of Evaluation: 11:20 - Subjective Subjective: patient seen and examined Status post IVC filter placement Placed on 100% nonrebreather mask overnight. Saturation now 100% in no respiratory distress Complaining of slight dizziness Hemodynamicaly stable Objective - Vital Signs/Intake and Output Vital Signs (last 24 hours): Temp Pulse Resp BP Pulse Ox 98.1 F 72 20 120/65 95 11/27/17 23:20 11/28/17 07:30 11/27/17 23:20 11/27/17 23:20 11/27/17 22:50 Intake and Output: 11/28/17 11/28/17 06:59 18:59 Intake Total 354 Balance 354 - Medications Medications: Current Medications Famotidine (Pepcid) 20 mg PO DAILY [facility] Last Admin: 11/28/17 10:11 Dose: 20 mg Insulin Aspart (Novolog) 0 unit SC ACHS [facility] PRN Reason: Protocol Last Admin: 11/28/17 08:10 Dose: 6 unit Levothyroxine Sodium (Synthroid) 100 mcg PO QD7 [facility] Lisinopril (Zestril) 10 mg PO DAILY [facility] Last Admin: 11/28/17 10:11 Dose: 10 mg Metformin HCl (Glucophage) 500 mg PO DAILY [facility] Last Admin: 11/28/17 10:10 Dose: 500 mg Naproxen (Anaprox) 275 mg PO BID PRN PRN Reason: Pain, 1-3 Last Admin: 11/28/17 10:02 Dose: 275 mg Oxycodone/Acetaminophen (Percocet 5/325 Mg Tab) 1 tab PO Q4 PRN PRN Reason: Pain Last Admin: 11/28/17 12:45 Dose: 1 tab Rivastigmine (Exelon 4.6 Mg/24 Hr Patch) 1 patch TD DAILY [facility] Last Admin: 11/28/17 10:02 Dose: 1 patch Rosuvastatin Calcium (Crestor) 5 mg PO HS [facility] Last Admin: 11/27/17 21:53 Dose: 5 mg Tolterodine Tartrate (Detrol La) 4 mg PO DAILY [facility] Last Admin: 11/28/17 10:04 Dose: 4 mg - Labs Labs: 11/28/17 05:55 11/28/17 05:55 PT 10.6 SECONDS (9.7-12.2) 11/26/17 15:15 INR 1.0 11/26/17 15:15 APTT 144 SECONDS (21-34) H* D 11/28/17 05:55 - Head Exam Head Exam: ATRAUMATIC, NORMOCEPHALIC - Eye Exam Eye Exam: Normal appearance - ENT Exam ENT Exam: Mucous Membranes Moist - Neck Exam Neck Exam: Normal Inspection - Respiratory Exam Respiratory Exam: Clear to Ausculation Bilateral - Cardiovascular Exam Cardiovascular Exam: REGULAR RHYTHM - GI/Abdominal Exam GI & Abdominal Exam: Soft, Normal Bowel Sounds Assessment and Plan (1) Pulmonary embolism Assessment & Plan: continue heparin Status post IVC filter Echocardiogram noted Considering patient's age and after discussion with the family we'll hold off on EKOS Continuepresent care for now Status: Acute
[2017-11-28 19:14] LABS: PROTHROMBIN TIME 11.3 SECONDS (9.7-12.2)
--- NOTE | 2017-11-28 20:29 | PN ---
SUBJECTIVE: The patient is currently restless and agitated. She was off her Ventimask. PHYSICAL EXAMINATION: VITAL SIGNS: Blood pressure 95/63, heart rate 67, temperature 97.6, O2 saturation earlier on nonrebreather mask was 100%. HEENT: Normocephalic. CHEST: Bilateral rhonchi. HEART: S1 and S2, regular. EXTREMITIES: 2+ pitting edema. LABORATORY DATA: SMA-7: Sodium 134, potassium 3.8, chloride 94, CO2 is 27, glucose 197, BUN 25, creatinine 1.1. Hemoglobin, hematocrit, white count, and platelet count are within normal limits. The most recent PTT from 06:00 a.m. was 144, the patient is currently off IV heparin. Official echocardiography study report: Mild concentric LVH with normal ejection fraction, normal right ventricular systolic pressure. Estimated RV systolic pressure of 72 mmHg. ASSESSMENT: 1. Bilateral pulmonary embolism. 2. Right femoral-popliteal deep venous thrombosis, status post inferior vena cava filter placement. 3. Uncontrolled diabetes mellitus. 4. Severe pulmonary hypertension. 5. Agitation. RECOMMENDATIONS: I did order 1 mg of IM Haldol and 1 mg q.6 hours p.r.n. Continue Synthroid 100 mcg daily, mg once a day which will be held for systolic blood pressure below 120. I discussed the case with Dr. Lucero. In my opinion, the patient is not a suitable candidate for catheter directed thrombolysis. The case will further be discussed with the patient's daughter. Joe Wood MD
[2017-11-28] MEDS: Enoxaparin 100 mg Syringe SC SCH (23:12)
[2017-11-29] MEDS: (Novolog) Insulin Aspart, Recombinant 100 u/ml 10 ml vial SC SCH ×4 (08:00→22:45)
[2017-11-29] MEDS: Enoxaparin 100 mg Syringe SC SCH ×2 (09:12→21:22)
[2017-11-29] MEDS: Tolterodine 4 mg ER Cap PO SCH (09:15)
--- NOTE | 2017-11-29 12:52 | CP.PCM.PN ---
Subjective - Date & Time of Evaluation Date of Evaluation: 11/29/17 Time of Evaluation: 06:30 - Subjective Subjective: Vascular surgery progress note for Dr. Estrella Jaimes, PGY-1 Pt S & E at bedside. Pt resting comfortably in bed, denies any problems/pain. Per nursing- pt with O2 saturation 88-90% w/o O2 via NC. No acute events overnight. Pt asking to go home. Objective - Vital Signs/Intake and Output Vital Signs (last 24 hours): Temp Pulse Resp BP Pulse Ox 98.3 F 76 20 117/70 96 11/29/17 09:34 11/29/17 09:34 11/29/17 09:34 11/29/17 09:34 11/29/17 09:34 - Medications Medications: Current Medications Enoxaparin Sodium (Lovenox) 90 mg SC Q12 [facility] Last Admin: 11/29/17 09:12 Dose: 90 mg Famotidine (Pepcid) 20 mg PO DAILY [facility] Last Admin: 11/29/17 09:21 Dose: 20 mg Haloperidol Lactate (Haldol) 1 mg IM Q6H PRN PRN Reason: Agitation Last Admin: 11/29/17 10:45 Dose: 1 mg Insulin Aspart (Novolog) 0 unit SC ACHS [facility] PRN Reason: Protocol Last Admin: 11/29/17 12:19 Dose: 6 unit Levothyroxine Sodium (Synthroid) 100 mcg PO QD7 [facility] Lisinopril (Zestril) 10 mg PO DAILY [facility] Last Admin: 11/29/17 09:16 Dose: 10 mg Metformin HCl (Glucophage) 500 mg PO DAILY [facility] Last Admin: 11/29/17 09:15 Dose: 500 mg Naproxen (Anaprox) 275 mg PO BID PRN PRN Reason: Pain, 1-3 Last Admin: 11/28/17 10:02 Dose: 275 mg Oxycodone/Acetaminophen (Percocet 5/325 Mg Tab) 1 tab PO Q4 PRN PRN Reason: Pain Last Admin: 11/28/17 12:45 Dose: 1 tab Rivastigmine (Exelon 4.6 Mg/24 Hr Patch) 1 patch TD DAILY [facility] Last Admin: 11/29/17 09:14 Dose: 1 patch Rosuvastatin Calcium (Crestor) 5 mg PO HS [facility] Last Admin: 11/28/17 22:33 Dose: 5 mg Tolterodine Tartrate (Detrol La) 4 mg PO DAILY [facility] Last Admin: 11/29/17 09:15 Dose: 4 mg - Labs Labs: 11/28/17 05:55 11/28/17 05:55 PT 11.3 SECONDS (9.7-12.2) 11/28/17 19:05 INR 1.0 11/28/17 19:05 APTT 27 SECONDS (21-34) D 11/28/17 21:13 - Constitutional Appears: Non-toxic, No Acute Distress - Head Exam Head Exam: ATRAUMATIC, NORMAL INSPECTION, NORMOCEPHALIC - Eye Exam Eye Exam: EOMI, Normal appearance - ENT Exam ENT Exam: Mucous Membranes Moist, Normal Exam - Neck Exam Neck Exam: Full ROM, Normal Inspection - Respiratory Exam Respiratory Exam: NORMAL BREATHING PATTERN (O2 via NC in nares). absent: Respiratory Distress - Cardiovascular Exam Cardiovascular Exam: REGULAR RHYTHM, +S1, +S2 - GI/Abdominal Exam GI & Abdominal Exam: Soft. absent: Distended (obese), Tenderness - Extremities Exam Extremities Exam: absent: Normal Inspection (Left groin site with some ecchymosis, slightly tender to palpation, no hematoma or masses noted) - Neurological Exam Neurological Exam: Alert, Awake, CN II-XII Intact - Psychiatric Exam Psychiatric exam: Normal Affect, Normal Mood - Skin Skin Exam: Dry, Intact, Warm. absent: Normal Color (left groin with ecchymoses) Assessment and Plan - Assessment and Plan (Free Text) Assessment: 87F acute DVT and PE s/p IVC filter placement POD# 2 Plan: Monitor pulses Pain control Cont treatment for acute PE/DVT Further mgmt as per primary team DW attending Fiona, PGY-1
--- NOTE | 2017-11-29 14:23 | CP.PCM.PN ---
Subjective - Date & Time of Evaluation Date of Evaluation: 11/29/17 Time of Evaluation: 12:50 - Subjective Subjective: patient seen and examined No respiratory distress Not keeping Ventimask Afebrile Hemodynamically stable Continue Lovenox Status post IVC filter Objective - Vital Signs/Intake and Output Vital Signs (last 24 hours): Temp Pulse Resp BP Pulse Ox 98.3 F 76 20 117/70 96 11/29/17 09:34 11/29/17 09:34 11/29/17 09:34 11/29/17 09:34 11/29/17 09:34 - Medications Medications: Current Medications Enoxaparin Sodium (Lovenox) 90 mg SC Q12 [facility] Last Admin: 11/29/17 09:12 Dose: 90 mg Famotidine (Pepcid) 20 mg PO DAILY [facility] Last Admin: 11/29/17 09:21 Dose: 20 mg Haloperidol Lactate (Haldol) 1 mg IM Q6H PRN PRN Reason: Agitation Last Admin: 11/29/17 10:45 Dose: 1 mg Insulin Aspart (Novolog) 0 unit SC ACHS [facility] PRN Reason: Protocol Last Admin: 11/29/17 12:19 Dose: 6 unit Levothyroxine Sodium (Synthroid) 100 mcg PO QD7 [facility] Lisinopril (Zestril) 10 mg PO DAILY [facility] Last Admin: 11/29/17 09:16 Dose: 10 mg Metformin HCl (Glucophage) 500 mg PO DAILY [facility] Last Admin: 11/29/17 09:15 Dose: 500 mg Naproxen (Anaprox) 275 mg PO BID PRN PRN Reason: Pain, 1-3 Last Admin: 11/28/17 10:02 Dose: 275 mg Oxycodone/Acetaminophen (Percocet 5/325 Mg Tab) 1 tab PO Q4 PRN PRN Reason: Pain Last Admin: 11/28/17 12:45 Dose: 1 tab Rivastigmine (Exelon 4.6 Mg/24 Hr Patch) 1 patch TD DAILY [facility] Last Admin: 11/29/17 09:14 Dose: 1 patch Rosuvastatin Calcium (Crestor) 5 mg PO HS [facility] Last Admin: 11/28/17 22:33 Dose: 5 mg Tolterodine Tartrate (Detrol La) 4 mg PO DAILY [facility] Last Admin: 11/29/17 09:15 Dose: 4 mg - Labs Labs: 11/28/17 05:55 11/28/17 05:55 PT 11.3 SECONDS (9.7-12.2) 11/28/17 19:05 INR 1.0 11/28/17 19:05 APTT 27 SECONDS (21-34) D 11/28/17 21:13 Assessment and Plan (1) Pulmonary embolism Status: Acute
--- NOTE | 2017-11-29 19:47 | PN ---
SUBJECTIVE: The patient is confused. She is less agitated compared to yesterday. She is currently on subcutaneous Lovenox. No apparent shortness of breath. PHYSICAL EXAMINATION: VITAL SIGNS: Blood pressure 117/70, heart rate 76, temperature 98.3, respirations 20. HEENT: Normocephalic. CHEST: Minimal rhonchi. HEART: S1 and S2, regular. ABDOMEN: Soft. EXTREMITIES: 1+ pitting edema. LABORATORY DATA: Blood sugar is 217 and 226. ASSESSMENT: 1. Bilateral pulmonary embolism. 2. Acute right femoral-popliteal deep venous thrombosis. 3. Uncontrolled diabetes mellitus. 4. Alzheimer dementia. RECOMMENDATIONS: Continue Crestor 5 mg once a day, metformin 500 mg daily, Haldol at 1 mg IM q.6 hours p.r.n., Lovenox at 90 mg subcutaneous twice a day, and Zestril at 10 mg once a day. Consider initiating oral anticoagulant agents. Joe Wood MD
--- NOTE | 2017-11-29 23:56 | PN ---
DATE: 11/29/2017. SUBJECTIVE: The patient is seen today 11/29/2017. She is not in any cardiopulmonary distress and the patient was started on Lovenox 90 mg every 12 hours. PHYSICAL EXAMINATION: VITAL SIGNS: Blood pressure 133/76, temperature 98.1, respiratory rate 18 and pulse 82. HEENT: Pupils equal, reactive to light. Normal appearing mucosa of the conjunctivae, oropharynx, and nasal membrane mucosa. NECK: Supple. No JVD. No carotid bruit. No lymph node. No thyromegaly. CHEST AND LUNGS: Bilateral symmetrical expansion. Good air exchange. No rales, no rhonchi. CARDIOVASCULAR SYSTEM: PMI not localized. S1 and S2. No additional sounds. ABDOMEN: Normoactive bowel sounds. No tenderness. No organomegaly. No masses. EXTREMITIES: No cyanosis, no clubbing, no edema. PAYROLL BENEFITS CLERK: Alert, awake, oriented x 2. No neurological deficit could be appreciated. ASSESSMENT: 1. Deep venous thrombosis. 2. Pulmonary embolism. 3. Hypertension. 4. Type 2 diabetes mellitus. PLAN: Continue the low molecular weight heparin. After discussing the condition with Cardiology and Pulmonary, no further intervention was decided after also discussing any further procedure with the family. The patient will be discharged to sub acute rehabilitation. Will start physical therapy. Dragan Vincent MD
--- NOTE | 2017-11-30 07:55 | PN ---
DATE: 11/28/2017. SUBJECTIVE: The patient was seen on 11/28/2017. She had no decrease of the shortness of breath and the patient is hard of hearing, but she is alert and awake. PHYSICAL EXAMINATION: VITAL SIGNS: Blood pressure 108/65, temperature 97.5, respiratory rate 20, and pulse 69. HEENT: Pupils equal, reactive to light. Normal-appearing mucosa of the conjunctivae, oropharynx and nasal membrane mucosa. NECK: Supple. No JVD. No carotid bruit. No lymph nodes. No thyromegaly. CHEST AND LUNGS: Bilateral symmetrical expansion. Good air exchange. No rales, no rhonchi. CARDIOVASCULAR SYSTEM: PMI not localized. S1 and S2. No additional sounds. ABDOMEN: Normoactive bowel sounds. No tenderness. No organomegaly. No masses. EXTREMITIES: No cyanosis, no clubbing, no edema. TEARER: Alert, awake, oriented x2. Positive deafness and no neurological deficits could be appreciated. ASSESSMENT: 1. Pulmonary embolism. 2. Hypertension. 3. Type 2 diabetes mellitus. PLAN: Continue current medications and management. Heparin drip was stopped and the patient was started on Lovenox 90 mg every 12 hours as their family request as they are concerned about the new anticoagulants with the possibility of bleeding. Discussed the patient condition with granddaughter at the bed side and Dr. Lucero, the pulmonary solution consultant. Dragan Vincent MD
[2017-11-30] MEDS: (Novolog) Insulin Aspart, Recombinant 100 u/ml 10 ml vial SC SCH ×4 (08:15→22:07)
[2017-11-30] MEDS: Enoxaparin 100 mg Syringe SC SCH ×2 (09:45→21:53)
[2017-11-30] MEDS: Naproxen 275 mg Tab PO PRN (09:46)
[2017-11-30] MEDS: Tolterodine 4 mg ER Cap PO SCH (10:04)
--- NOTE | 2017-11-30 13:01 | CP.PCM.PN ---
Subjective - Date & Time of Evaluation Date of Evaluation: 11/30/17 Time of Evaluation: 09:45 - Subjective Subjective: Patient was seen and examined at the bedside. Patient was in no respiratory distress, sitting comfortably at the bedside. Staus post IVC filter. She has been tolerating her mediations and diet. Assessment/Plan PE -afebrile -hemodynamically stable -no respiratory distress -s/p IVC filter -on lovenox -subacute rehab placement -on nasal canula O2 Objective - Vital Signs/Intake and Output Vital Signs (last 24 hours): Temp Pulse Resp BP Pulse Ox 97.3 F L 74 18 168/72 H 94 L 11/30/17 08:40 11/30/17 08:40 11/30/17 08:40 11/30/17 08:40 11/30/17 08:40 Intake and Output: 11/30/17 11/30/17 06:59 18:59 Intake Total 240 Balance 240 - Medications Medications: Current Medications Enoxaparin Sodium (Lovenox) 90 mg SC Q12 [facility] Last Admin: 11/30/17 09:45 Dose: 90 mg Famotidine (Pepcid) 20 mg PO DAILY [facility] Last Admin: 11/30/17 09:45 Dose: 20 mg Insulin Aspart (Novolog) 0 unit SC ACHS [facility] PRN Reason: Protocol Last Admin: 11/30/17 12:07 Dose: 6 unit Levothyroxine Sodium (Synthroid) 100 mcg PO QD7 [facility] Lisinopril (Zestril) 10 mg PO DAILY [facility] Last Admin: 11/30/17 09:44 Dose: 10 mg Metformin HCl (Glucophage) 500 mg PO DAILY [facility] Last Admin: 11/30/17 09:44 Dose: 500 mg Naproxen (Anaprox) 275 mg PO BID PRN PRN Reason: Pain, 1-3 Last Admin: 11/30/17 09:46 Dose: 275 mg Oxycodone/Acetaminophen (Percocet 5/325 Mg Tab) 1 tab PO Q4 PRN PRN Reason: Pain Last Admin: 11/28/17 12:45 Dose: 1 tab Rivastigmine (Exelon 4.6 Mg/24 Hr Patch) 1 patch TD DAILY [facility] Last Admin: 11/30/17 09:46 Dose: 1 patch Rosuvastatin Calcium (Crestor) 5 mg PO HS [facility] Last Admin: 11/29/17 21:22 Dose: 5 mg Tolterodine Tartrate (Detrol La) 4 mg PO DAILY [facility] Last Admin: 11/30/17 10:04 Dose: 4 mg - Labs Labs: 11/28/17 05:55 11/28/17 05:55 PT 11.3 SECONDS (9.7-12.2) 11/28/17 19:05 INR 1.0 11/28/17 19:05 APTT 27 SECONDS (21-34) D 11/28/17 21:13 Assessment and Plan (1) Pulmonary embolism Status: Acute
--- NOTE | 2017-11-30 14:56 | CP.PCM.PN ---
Subjective - Date & Time of Evaluation Date of Evaluation: 11/30/17 Time of Evaluation: 11:30 - Subjective Subjective: Patient seen today denies any chest pain, sob, palpitations, dizziness, Objective - Vital Signs/Intake and Output Vital Signs (last 24 hours): Temp Pulse Resp BP Pulse Ox 97.3 F L 74 18 168/72 H 94 L 11/30/17 08:40 11/30/17 08:40 11/30/17 08:40 11/30/17 08:40 11/30/17 08:40 Intake and Output: 11/30/17 11/30/17 06:59 18:59 Intake Total 240 Balance 240 - Medications Medications: Current Medications Enoxaparin Sodium (Lovenox) 90 mg SC Q12 [facility] Last Admin: 11/30/17 09:45 Dose: 90 mg Famotidine (Pepcid) 20 mg PO DAILY [facility] Last Admin: 11/30/17 09:45 Dose: 20 mg Insulin Aspart (Novolog) 0 unit SC ACHS [facility] PRN Reason: Protocol Last Admin: 11/30/17 12:07 Dose: 6 unit Levothyroxine Sodium (Synthroid) 100 mcg PO QD7 [facility] Lisinopril (Zestril) 10 mg PO DAILY [facility] Last Admin: 11/30/17 09:44 Dose: 10 mg Metformin HCl (Glucophage) 500 mg PO DAILY [facility] Last Admin: 11/30/17 09:44 Dose: 500 mg Naproxen (Anaprox) 275 mg PO BID PRN PRN Reason: Pain, 1-3 Last Admin: 11/30/17 09:46 Dose: 275 mg Oxycodone/Acetaminophen (Percocet 5/325 Mg Tab) 1 tab PO Q4 PRN PRN Reason: Pain Last Admin: 11/28/17 12:45 Dose: 1 tab Rivastigmine (Exelon 4.6 Mg/24 Hr Patch) 1 patch TD DAILY [facility] Last Admin: 11/30/17 09:46 Dose: 1 patch Rosuvastatin Calcium (Crestor) 5 mg PO HS [facility] Last Admin: 11/29/17 21:22 Dose: 5 mg Tolterodine Tartrate (Detrol La) 4 mg PO DAILY [facility] Last Admin: 11/30/17 10:04 Dose: 4 mg - Labs Labs: 11/28/17 05:55 11/28/17 05:55 PT 11.3 SECONDS (9.7-12.2) 11/28/17 19:05 INR 1.0 11/28/17 19:05 APTT 27 SECONDS (21-34) D 11/28/17 21:13 Assessment and Plan - Assessment and Plan (Free Text) Assessment: A/P 87 y/o F c PMHx HTN, HLD, DM, Alzheimer's admitted with shortness of breath/PE s/p IVC filter on lovenix therapeutic D/W with Dr. Lucero , recommends to continue lovenox D/W Dr. Vincent , patient for MYA d/w daughter she will let us know in am the preference of rehab facility
--- NOTE | 2017-11-30 19:11 | CP.PCM.PN ---
Subjective - Date & Time of Evaluation Date of Evaluation: 11/30/17 Time of Evaluation: 06:20 - Subjective Subjective: Vascular Surgery- Dr. Pierson Patient seen and examined at bedside this AM. Pt was agitated overnight. Left groin site C/D/I no signs of hematoma. pain well controlled. On nasal canula for shortness of breath. saturating at 96%. has non-productive cough w/ clear sinus drinage. Denies fevers, chills, chest pain, nausea, vomiting, diarrhea Objective - Vital Signs/Intake and Output Vital Signs (last 24 hours): Temp Pulse Resp BP Pulse Ox 97.6 F 87 22 124/69 96 11/30/17 16:00 11/30/17 16:16 11/30/17 16:00 11/30/17 16:00 11/30/17 16:00 - Medications Medications: Current Medications Enoxaparin Sodium (Lovenox) 90 mg SC Q12 [facility] Last Admin: 11/30/17 09:45 Dose: 90 mg Famotidine (Pepcid) 20 mg PO DAILY [facility] Last Admin: 11/30/17 09:45 Dose: 20 mg Insulin Aspart (Novolog) 0 unit SC ACHS [facility] PRN Reason: Protocol Last Admin: 11/30/17 17:29 Dose: Not Given Levothyroxine Sodium (Synthroid) 100 mcg PO QD7 [facility] Lisinopril (Zestril) 10 mg PO DAILY [facility] Last Admin: 11/30/17 09:44 Dose: 10 mg Metformin HCl (Glucophage) 500 mg PO DAILY [facility] Last Admin: 11/30/17 09:44 Dose: 500 mg Naproxen (Anaprox) 275 mg PO BID PRN PRN Reason: Pain, 1-3 Last Admin: 11/30/17 09:46 Dose: 275 mg Oxycodone/Acetaminophen (Percocet 5/325 Mg Tab) 1 tab PO Q4 PRN PRN Reason: Pain Last Admin: 11/28/17 12:45 Dose: 1 tab Rivastigmine (Exelon 4.6 Mg/24 Hr Patch) 1 patch TD DAILY [facility] Last Admin: 11/30/17 09:46 Dose: 1 patch Rosuvastatin Calcium (Crestor) 5 mg PO HS [facility] Last Admin: 11/29/17 21:22 Dose: 5 mg Tolterodine Tartrate (Detrol La) 4 mg PO DAILY [facility] Last Admin: 11/30/17 10:04 Dose: 4 mg - Labs Labs: 11/28/17 05:55 11/28/17 05:55 PT 11.3 SECONDS (9.7-12.2) 11/28/17 19:05 INR 1.0 11/28/17 19:05 APTT 27 SECONDS (21-34) D 11/28/17 21:13 - Constitutional Appears: Non-toxic, No Acute Distress - Eye Exam Eye Exam: EOMI. absent: Scleral icterus - Respiratory Exam Respiratory Exam: NORMAL BREATHING PATTERN. absent: Accessory Muscle Use, Respiratory Distress - Cardiovascular Exam Cardiovascular Exam: +S1, +S2. absent: Bradycardia, Tachycardia - GI/Abdominal Exam GI & Abdominal Exam: Soft. absent: Distended, Firm, Guarding, Rigid, Tenderness - Extremities Exam Additional comments: L groin site clean dry intact; no hematoma - Neurological Exam Neurological Exam: Alert, Awake, Oriented x3 - Psychiatric Exam Psychiatric exam: Normal Affect - Skin Skin Exam: Intact, Warm Assessment and Plan - Assessment and Plan (Free Text) Assessment: 87F acute DVT and PE s/p IVC filter placement Plan: - monitor groin site - monitor pulses - c/w heparin and treatment for acute PE and DVT - discussed w/ Dr. Pierson surgical attending Merchant STEELY1
--- NOTE | 2017-11-30 22:26 | PN ---
DATE: 11/30/2017. SUBJECTIVE: The patient is confused, but does not appear to be in any respiratory distress. PHYSICAL EXAMINATION: VITAL SIGNS: Blood pressure 124/69, heart rate 76, temperature 97.6, respirations 22. HEENT: Normocephalic. CHEST: Bilateral rhonchi. HEART: S1 and S2 regular. EXTREMITIES: 1+ pitting edema. LABORATORY DATA: Today's blood sugars are 219 and 263 respectively. ASSESSMENT: 1. Right femoral popliteal vein deep vein thrombosis and bilateral pulmonary embolus. 2. Severe pulmonary hypertension. 3. Uncontrolled diabetes mellitus. 4. Hypothyroidism. 5. Systemic hypertension. RECOMMENDATIONS: Continue Zestril at 10 mg once a day, Synthroid 100 mcg once a day, Percocet 1 tablet q. 6 hours p.r.n., Glucophage 500 mg daily, Crestor 5 mg once a day, therapeutic subcutaneous Lovenox at 90 mg twice a day. Consider initiating oral anticoagulant agent at this time. Joe Wood MD
--- NOTE | 2017-12-01 04:30 | PN ---
DATE: 11/30/2017 SUBJECTIVE: The patient is seen today 11/30/2017. She is not in any cardiopulmonary distress. The patient is on Lovenox 90 mg subcutaneously q.12 hours. PHYSICAL EXAMINATION: VITAL SIGNS: Blood pressure is 124/69, temperature 97.6, respiratory rate 20, and pulse 76. HEENT: Pupils equal, and reactive to light. Normal-appearing mucosa of the conjunctivae, oropharynx, and nasal membrane mucosa. NECK: Supple. No JVD. No carotid bruit. No lymph node. No thyromegaly. CHEST/LUNGS: Bilateral symmetrical expansion. Good air exchange. No rales, no rhonchi. CARDIOVASCULAR SYSTEM: PMI not localized. S1, S2, no additional sounds. ABDOMEN: Normoactive bowel sounds. No tenderness. No organomegaly. No masses. EXTREMITIES: No cyanosis, no clubbing, no edema. VEHICLE AND EQUIPMENT CLEANER: Alert, awake, oriented x2. No neurological deficit could be appreciated. ASSESSMENT: Pulmonary embolism, hypertension, type 2 diabetes mellitus, uncontrolled osteoarthritis, neurosensory deafness. PLAN: Continue current anticoagulants and physical therapy and plan to discharge the patient to subacute rehabilitation. Dragan Vincent MD
[2017-12-01] MEDS: (Novolog) Insulin Aspart, Recombinant 100 u/ml 10 ml vial SC SCH ×4 (07:51→21:56)
--- NOTE | 2017-12-01 08:03 | CP.PCM.PN ---
Subjective - Date & Time of Evaluation Date of Evaluation: 12/01/17 Time of Evaluation: 06:30 - Subjective Subjective: Vascular Surgery- Dr. Pierson Patient seen and examined at bedside this AM. Pt was agitated overnight. Left groin site C/D/I no signs of hematoma. pain well controlled. saturating 96% on RA. ambulates without assistance Objective - Vital Signs/Intake and Output Vital Signs (last 24 hours): Temp Pulse Resp BP Pulse Ox 98.3 F 71 20 165/89 H 95 11/30/17 23:15 12/01/17 03:30 11/30/17 23:15 11/30/17 23:15 11/30/17 23:15 - Medications Medications: Current Medications Enoxaparin Sodium (Lovenox) 90 mg SC Q12 [facility] Last Admin: 11/30/17 21:53 Dose: 90 mg Famotidine (Pepcid) 20 mg PO DAILY [facility] Last Admin: 11/30/17 09:45 Dose: 20 mg Insulin Aspart (Novolog) 0 unit SC ACHS [facility] PRN Reason: Protocol Last Admin: 12/01/17 07:51 Dose: 4 unit Levothyroxine Sodium (Synthroid) 100 mcg PO QD7 [facility] Lisinopril (Zestril) 10 mg PO DAILY [facility] Last Admin: 11/30/17 09:44 Dose: 10 mg Metformin HCl (Glucophage) 500 mg PO DAILY [facility] Last Admin: 11/30/17 09:44 Dose: 500 mg Naproxen (Anaprox) 275 mg PO BID PRN PRN Reason: Pain, 1-3 Last Admin: 11/30/17 09:46 Dose: 275 mg Oxycodone/Acetaminophen (Percocet 5/325 Mg Tab) 1 tab PO Q4 PRN PRN Reason: Pain Last Admin: 11/28/17 12:45 Dose: 1 tab Rivastigmine (Exelon 4.6 Mg/24 Hr Patch) 1 patch TD DAILY [facility] Last Admin: 11/30/17 09:46 Dose: 1 patch Rosuvastatin Calcium (Crestor) 5 mg PO HS [facility] Last Admin: 11/30/17 21:52 Dose: 5 mg Tolterodine Tartrate (Detrol La) 4 mg PO DAILY [facility] Last Admin: 11/30/17 10:04 Dose: 4 mg - Labs Labs: 11/28/17 05:55 11/28/17 05:55 PT 11.3 SECONDS (9.7-12.2) 11/28/17 19:05 INR 1.0 11/28/17 19:05 APTT 27 SECONDS (21-34) D 11/28/17 21:13 - Constitutional Appears: Non-toxic, No Acute Distress - Head Exam Head Exam: ATRAUMATIC - Eye Exam Eye Exam: EOMI. absent: Scleral icterus - ENT Exam ENT Exam: Mucous Membranes Moist - Respiratory Exam Respiratory Exam: Respiratory Distress, NORMAL BREATHING PATTERN. absent: Accessory Muscle Use - Cardiovascular Exam Cardiovascular Exam: +S1, +S2. absent: Bradycardia, Tachycardia - GI/Abdominal Exam GI & Abdominal Exam: Soft. absent: Tenderness - Extremities Exam Extremities Exam: Pedal Edema Additional comments: b/l LE edema normal size according to patient L. groin C/D/I no hematoma - Neurological Exam Neurological Exam: Awake. absent: Oriented x3 - Psychiatric Exam Psychiatric exam: Normal Affect - Skin Skin Exam: Intact, Warm Assessment and Plan - Assessment and Plan (Free Text) Assessment: 87F acute DVT and PE s/p IVC filter placement Plan: - medical management per primary team - plan for MYA - no further acute surgical intervention at this time - discussed w/ Dr. Pierson surgical attending PGY1
[2017-12-01 08:37] LABS: BASO % 0.6 % (0.0-2.0); EOS # 0.2 K/uL (0.0-0.7); EOS % 3.2 % (0.0-4.0); HEMOGLOBIN 11.2 g/dL (11.0-16.0); LYMPH # 2.3 K/uL (1.0-4.3); LYMPH % 34.1 % (20.0-40.0); MEAN CELL VOLUME 88.6 fL (81.0-99.0); MEAN CORPUSCULAR HEMOGLOBIN 30.2 pg (27.0-31.0); MEAN CORPUSCULAR HGB CONC 34.1 g/dL (33.0-37.0); MONO # 0.4 K/uL (0.0-0.8); MONO % 6.4 % (0.0-10.0); NEUT # 3.7 K/uL (1.8-7.0); NEUT % 55.7 % (50.0-75.0); NRBC % 0.1 % (0.0-2.0); RBC 3.72 Mil/uL (3.80-5.20); RED CELL DISTRIBUTION WIDTH 15.2 % (11.5-14.5); WHITE BLOOD COUNT 6.6 K/uL (4.8-10.8)
[2017-12-01 08:48] LABS: CALCIUM 9.6 mg/dl (8.6-10.4)
[2017-12-01] MEDS: Enoxaparin 100 mg Syringe SC SCH ×2 (10:23→21:20)
[2017-12-01] MEDS: Tolterodine 4 mg ER Cap PO SCH (10:23)
--- NOTE | 2017-12-01 17:18 | PN ---
DATE: SUBJECTIVE: The patient is confused, on one-to-one watch, but she is pleasant and noncombative. PHYSICAL EXAMINATION VITAL SIGNS: Blood pressure 135/81, heart rate 71, temperature 97.2. HEENT: Normocephalic. CHEST: Bilateral rhonchi. HEART: S1 and S2 regular. ABDOMEN: Soft. EXTREMITIES: 1+ pitting edema. LABORATORY DATA: SMA-7 sodium 137, potassium 3.8, chloride 97, CO2 27, glucose 291, BUN 24, creatinine 1.1. Today's hemoglobin and hematocrit are 11.1 and 32.5, white count and platelet count are within normal limits. ASSESSMENT: 1. Right femoral popliteal deep vein thrombosis. 2. Bilateral pulmonary embolism. 3. Alzheimer's dementia. 4. Uncontrolled diabetes mellitus. RECOMMENDATIONS: Continue current therapeutic subcutaneous Lovenox 90 mg twice a day and Crestor 5 mg once a day, Zestril 10 mg once a day. Start Eliquis 5 mg daily if ok with Dr. Lucero, the pneumatic jack operator. Joe Wood MD
[2017-12-02 00:22] VITALS: RESP 20
--- NOTE | 2017-12-02 02:15 | PN ---
DATE: 12/01/2017. SUBJECTIVE: The patient is seen today, December 01, 2017. She is confused and not cooperating with taking her medications. PHYSICAL EXAMINATION: VITAL SIGNS: Blood pressure 131/77, temperature 97.4, respiratory rate 22, pulse 93. HEENT: Pupils equal, reactive to light. Normal-appearing mucosa of the conjunctivae, oropharynx and nasal membrane mucosa. NECK: Supple. No JVD. No carotid bruit. No lymph node. No thyromegaly. CHEST AND LUNGS: Bilateral symmetrical expansion. Good air exchange. CARDIOVASCULAR SYSTEM: PMI not localized. S1, S2. No additional sounds. ABDOMEN: Normoactive bowel sounds. No tenderness. No organomegaly. No masses. EXTREMITIES: No cyanosis, no clubbing, no edema. TECHNICAL TRAINING INSTRUCTOR: Alert, awake, oriented x2. No neurological deficit could be appreciated. ASSESSMENT: 1. Pulmonary embolism. 2. Hypertension. 3. Type 2 diabetes mellitus. 4. 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 PLAN: Continue current Lovenox as well as current treatment and the patient is for subacute rehabilitation on discharge. Dragan Vincent MD
[2017-12-02] MEDS: (Novolog) Insulin Aspart, Recombinant 100 u/ml 10 ml vial SC SCH ×2 (08:15→12:32)
[2017-12-02 09:09] VITALS: BP 126/76; PULSE 59; TEMP 98.3; O2SAT 97
[2017-12-02] MEDS: Tolterodine 4 mg ER Cap PO SCH (09:44)
--- NOTE | 2017-12-02 10:53 | CP.PCM.PN ---
Subjective - Date & Time of Evaluation Date of Evaluation: 12/02/17 Time of Evaluation: 10:52 - Subjective Subjective: Pulmonary consult; covering Dr Lucero Patient is seen and examined in chair today. She has no complaints. Sitter states she has increased productive cough since yesterday. Otherwise she denies shortness of breath, fever, chills, chest pain, dizziness. She is afebrile. Objective - Vital Signs/Intake and Output Vital Signs (last 24 hours): Temp Pulse Resp BP Pulse Ox 98.3 F 59 L 20 126/76 97 12/02/17 08:15 12/02/17 08:15 12/02/17 08:15 12/02/17 08:15 12/02/17 08:15 - Medications Medications: Current Medications Famotidine (Pepcid) 20 mg PO DAILY [facility] Last Admin: 12/02/17 09:43 Dose: 20 mg Insulin Aspart (Novolog) 0 unit SC ACHS [facility] PRN Reason: Protocol Last Admin: 12/02/17 08:15 Dose: 4 unit Levothyroxine Sodium (Synthroid) 100 mcg PO QD7 [facility] Lisinopril (Zestril) 10 mg PO DAILY [facility] Last Admin: 12/02/17 09:44 Dose: 10 mg Metformin HCl (Glucophage) 500 mg PO DAILY [facility] Last Admin: 12/02/17 09:43 Dose: 500 mg Naproxen (Anaprox) 275 mg PO BID PRN PRN Reason: Pain, 1-3 Last Admin: 11/30/17 09:46 Dose: 275 mg Oxycodone/Acetaminophen (Percocet 5/325 Mg Tab) 1 tab PO Q4 PRN PRN Reason: Pain Last Admin: 11/28/17 12:45 Dose: 1 tab Rivastigmine (Exelon 4.6 Mg/24 Hr Patch) 1 patch TD DAILY [facility] Last Admin: 12/02/17 09:45 Dose: 1 patch Rosuvastatin Calcium (Crestor) 5 mg PO HS [facility] Last Admin: 12/01/17 21:20 Dose: 5 mg Tolterodine Tartrate (Detrol La) 4 mg PO DAILY [facility] Last Admin: 12/02/17 09:44 Dose: 4 mg - Labs Labs: 12/01/17 08:21 12/01/17 08:21 PT 11.3 SECONDS (9.7-12.2) 11/28/17 19:05 INR 1.0 11/28/17 19:05 APTT 27 SECONDS (21-34) D 11/28/17 21:13 - Constitutional Appears: Well, Non-toxic, No Acute Distress - Head Exam Head Exam: ATRAUMATIC, NORMOCEPHALIC - Eye Exam Eye Exam: EOMI, Normal appearance Pupil Exam: PERRL - ENT Exam ENT Exam: Mucous Membranes Moist - Neck Exam Neck Exam: Full ROM. absent: Lymphadenopathy, Tenderness, Thyromegaly - Respiratory Exam Respiratory Exam: Clear to Ausculation Bilateral. absent: Accessory Muscle Use , Chest Wall Tenderness, Decreased Breath Sounds, Rales, Rhonchi, Wheezes, Respiratory Distress - Cardiovascular Exam Cardiovascular Exam: REGULAR RHYTHM, RRR, +S1, +S2. absent: Diastolic murmur, JVD, Murmur - GI/Abdominal Exam GI & Abdominal Exam: Soft, Normal Bowel Sounds. absent: Distended, Tenderness, Rebound - Extremities Exam Extremities Exam: Full ROM. absent: Calf Tenderness, Joint Swelling - Neurological Exam Neurological Exam: Alert, Awake, CN II-XII Intact - Psychiatric Exam Psychiatric exam: Anxious Assessment and Plan (1) Pulmonary embolism Status: Acute - Assessment and Plan (Free Text) Assessment: Will transition from Lovonox to Eliquis today. Patient will receive last dose of Lovonox this AM and will receive 5mg Eliquis this PM at 8:00pm. She will receive Eliquis 5 mg twice a day. She is status post IVC filter. Awaiting long term placement. On supplemental oxygen.
[2017-12-02] MEDS ORDERED: Enoxaparin 100 mg Syringe SC ONE (11:30)
[2017-12-02] MEDS ORDERED: Enoxaparin 100 mg Syringe SC STA (11:40)
--- NOTE | 2017-12-02 20:13 | PN ---
SUBJECTIVE: The patient is still confused but does not appear to be in any distress. PHYSICAL EXAMINATION: VITAL SIGNS: Blood pressure 126/76, heart rate 69, temperature 98.3, respirations 20. HEENT: Normocephalic. CHEST: Clear. HEART: S1 and S2, regular. EXTREMITIES: 2+ pitting edema. LABORATORY DATA: Today's blood sugar is . ASSESSMENT: 1. Right lower extremity deep vein thrombosis. 2. Bilateral pulmonary emboli. 3. Alzheimer dementia. 4. Uncontrolled diabetes mellitus. RECOMMENDATIONS: Continue current therapeutic subcutaneous Lovenox which will be discontinued prior to her transfer to subacute rehab. The patient will be given Eliquis 5 mg daily and will be maintained at subacute rehab at 5 mg orally twice a day. In the meantime, continue Zestril at 10 mg once a day, Crestor 5 mg once a day. Joe Wood MD
--- NOTE | 2017-12-03 06:29 | DS ---
REASON FOR ADMISSION: This is an 87-year-old [place]oc[place] female with history of multiple medical problems, who was admitted for pulmonary embolism. COURSE OF HOSPITALIZATION: The patient was admitted to medical floor and she had a venous Doppler that showed also deep venous thrombosis. The patient had an IVC filter placed by Dr. Pierson. The patient was switched from unfractionated heparin to low-molecular weight heparin as per family choice as we discussed with the granddaughter at the bedside the different anticoagulant options. The patient was started also on physical therapy and she was discharged to subacute rehabilitation to continue Lovenox 90 mg every 12 hours. FINAL DIAGNOSES: 1. Pulmonary embolism. 2. Deep venous thrombosis. 3. Type 2 diabetes mellitus. 4. Hypertension. 5. Osteoarthritis. 6. Dementia. 7. Sensorineural deafness. [facility] MD [place]
== END 2017-12-02 16:11 | DRG 167 ==
LOC: C.ER 14:22 → C.9E 18:17 → C.6T 11-27 18:47
PROVIDERS: ADMIT Internal Medicine; ATTEND Internal Medicine
PROC: 06H03DZ Insertion of Intraluminal Device into Inferior Vena Cava, Percutaneous Approach (ICD-10-PCS; principal; 2017-11-27)
DX: I26.99 Other pulmonary embolism without acute cor pulmonale (principal); I82.439 Acute embolism and thrombosis of unspecified popliteal vein; E11.65 Type 2 diabetes mellitus with hyperglycemia; I82.411 Acute embolism and thrombosis of right femoral vein; G30.9 Alzheimer's disease, unspecified; H90.5 Unspecified sensorineural hearing loss; I27.20 Pulmonary hypertension, unspecified; F02.80 Dementia in other diseases classified elsewhere, unspecified severity, without behavioral disturbance, psychotic disturbance, mood disturbance, and anxiety; E03.9 Hypothyroidism, unspecified; E78.5 Hyperlipidemia, unspecified; I10 Essential (primary) hypertension; Z86.73 Personal history of transient ischemic attack (TIA), and cerebral infarction without residual deficits; R09.02 Hypoxemia